=== PATIENT | female | born 1955 | race Two or more races ===

== ENCOUNTER 2024-12-11 11:18 | Inpatient (IN) | payer MEDICARE ==
[~2024-12-11] VITALS: Ht 160 cm; Wt 67.4 kg
--- NOTE | 2024-12-11 11:33 | ECG ---
[facility] Test Date: 2024-12-11 Test Time: 11:29:35 Pat Name: DAVID MORRISON Department: ER Room: Gender: F Construction Specialist: NAOMY : 1955 Requested By: VERÓNICA CHERY Order Number: [id number] Reading MD: Kee Bowers Measurements Intervals [place] Rate: 98 P: 65 PA: 139 QRS: -1 QRSD: 83 T: 39 QT: 311 QTc: 398 Interpretive Statements Sinus rhythm Low voltage, precordial leads Electronically Signed On 12-11-2024 17:23:28 PST by Kee Bowers Please click the below link to view image of tracing.
--- NOTE | 2024-12-11 12:00 | ED.PDOC ---
History of Present Illness HPI Comments Ekaterina Arnold is a 69-year-old female patient who presents to the ED with chief complaint of dyspnea in functional class III associated with lower back pain, generalized weakness, dizziness with frequent falls with no loss of consciousness (probably secondary to Meniere syndrome) which started on September 2024 per patient was triggered after shingle infection, she has seen PCP multiple occasions in completed three courses of amoxicillin with no improvement of her symptoms. In the past week she started complaining of productive cough with clear/tanned phlegm and stabbing chest pain which appears with the cough, prompting her visit to the ED. denies palpitation, syncope, nausea, vomiting, diarrhea, unintentional weight loss, recent travel, sick contacts, bleeding, dysuria and motor or sensory deficits Past medical history: Hypertension, dyslipidemia, diabetes, asthma, hemorrhoids status post hemorrhoidectomy, gastritis, menopause at age 50 with no abnormal uterine bleeding, Meniere syndrome status post craniotomy, anemia which has resolved after hemorrhoidectomy, anxiety Surgical history: Appendicectomy, craniotomy, hemorrhoidectomy Family history: Hypertension diabetes in brother and grandmother. Brother of PE at age 73 Social history: Lives in [place] alone (daughter lives close by and visits her daily). Denies current tobacco, alcohol and other drug abuse Allergies: Iodine Home medication: Aspirin, Mucinex, metformin a 1000 mg p.o. b.i.d., losartan 100 mg p.o. daily, Xanax, fish oil Chief Complaint: General Weakness Time Seen by MD: 11:30 Allergies: Coded Allergies: Iodine (Unverified Allergy, Unknown, 12/11/24) Mode of Arrival: Ambulatory Physical Exam General Appearance: No Apparent Distress, Normal HEENT: Normal ENT Inspection, TMs Normal, Other (Erythema and pharynx, dry mucous membranes.) Neck: Full Range of Motion, Non-Tender, Normal, Normal Inspection Respiratory: Chest Non-Tender, Crackles, No Accessory Muscle Use, No Respiratory Distress Cardiovascular: No Edema, No JVD, No Murmur, No Gallop, Normal Peripheral Pulses, Regular Rate/Rhythm Breast Exam: Deferred Gastrointestinal: No Organomegaly, Non Tender, No Pulsatile Mass, Normal Bowel Sounds, Soft Genitalia: Deferred Pelvic: Deferred Rectal: Deferred Extremities: No calf tenderness, Normal capillary refill, Normal inspection, Normal range of motion, Non-tender, No pedal edema Neurologic: Alert, brazer induction II-XII nml as Tested, No Motor Deficits, Normal Affect, Normal Mood, No Sensory Deficits Cerebellar Function: Normal Reflexes: Normal Skin: Dry, Normal Color, Warm Lymphatic: No Adenopathy Was a procedure done? Was a procedure done?: No Differential Dx Considerations may include: Pneumonia, LA, PE, pulmonary hypertension, anemia X-Ray, Labs, Meds, VS Vital Signs Date Time Temp Pulse Resp B/P (MAP) Pulse Ox O2 Delivery O2 Flow Rate FiO2 12/11/24 16:27 98.4 91 20 137/83 (101) 98 98.4 12/11/24 16:06 97 16 97 Room Air* 0 21 12/11/24 16:04 97.8 87 18 135/62 (86) 99 97.8 12/11/24 11:30 97.8 63 22 134/65 (88) 94 12/11/24 11:30 22 94 Room Air 0 12/11/24 11:29 98 Lab Test 12/11/24 17:00 12/11/24 15:08 12/11/24 12:03 Range/Units Influenza Type A Antigen Positive Negative Influenza Type B Antigen Negative Negative SARS-CoV-2 Antigen (Rapid) Negative NEGATIVE Urine Color Yellow Yellow Urine Clarity Clear Clear Urine pH 5.5 5.0-9.0 Urine Specific [place] 1.026 1.001-1.035 Urine Protein 1+ H Negative Urine Ketones Negative Negative Urine Blood Negative Negative /uL Urine Nitrite Negative Negative Urine Bilirubin Negative Negative Urine Urobilinogen Normal Negative mg/dL Urine Leukocyte Esterase Negative Negative /uL Urine RBC 2 0 - 4 /hpf Urine Microscopic WBC 1 0-5 /HPF Urine Squamous Epithelial Cells Few <5 /hpf Urine Bacteria None seen None Seen /hpf Urine Glucose Normal Normal mg/dL Urine Opiates Screen Pending Urine Fentanyl Screen Pending Urine Barbiturates Screen Pending Urine Phencyclidine Screen Pending Urine Amphetamines Screen Pending Urine Benzodiazepines Screen Pending Urine Cocaine Screen Pending Urine Cannabinoids Screen Pending White Blood Count 5.6 4.4-10.8 10^3/uL Red Blood Count 4.72 4.0-5.20 10^6/uL Hemoglobin 13.6 12.2-16.2 g/dL Hematocrit 41.3 36.0-46.0 % Mean Corpuscular Volume 87.6 80.0-100.0 fL Mean Corpuscular Hemoglobin 28.9 28.0-32.0 pg Mean Corpuscular Hemoglobin Concent 33.0 32.0-36.0 g/dL Red Cell Distribution Width 14.3 11.8-14.3 % Platelet Count 194 140-450 10^3/uL Mean Platelet Volume 7.8 6.9-10.8 fL Neutrophils (%) (Auto) 75.8 37.0-80.0 % Lymphocytes (%) (Auto) 14.6 10.0-50.0 % Monocytes (%) (Auto) 8.5 0.0-12.0 % Eosinophils (%) (Auto) 0.7 0.0-7.0 % Basophils (%) (Auto) 0.4 0.0-2.0 % Neutrophils # (Auto) 4.3 1.6-8.6 10 ^3/uL Lymphocytes # (Auto) 0.8 0.4-5.4 10 ^3/uL Monocytes # (Auto) 0.5 0-1.3 10 ^3/uL Eosinophils # (Auto) 0 0-0.8 10 ^3/uL Basophils # (Auto) 0 0-0.2 10 ^3/uL Nucleated Red Blood Cells 0.2 % Prothrombin Time 10.1 9.3-11.8 sec Prothrombin Time INR 0.95 0.9-1.15 Activated Partial Thromboplast Time 32.0 24.5-34.5 SEC D-Dimer, Quantitative 0.94 H 0.0-0.49 mg/L FEU Sodium Level 140 136-145 mmol/L Potassium Level 4.0 3.5-5.1 mmol/L Chloride Level 106 98-107 mmol/L Carbon Dioxide Level 26 20-31 mmol/L Anion Gap 8 5-15 Blood Urea Nitrogen 23 9-23 mg/dL Creatinine 1.24 H 0.550-1.02 mg/dL Glomerular Filtration Rate Calc 47 >90 mL/min BUN/Creatinine Ratio 18.5 10.0-20.0 Serum Glucose 127 H 74-106 mg/dL Lactic Acid Level 1.2 0.4-2.0 mmol/L Calcium Level 9.5 8.7-10.4 mg/dL Phosphorus Level 3.1 2.4-5.1 mg/dL Magnesium Level 1.9 1.6-2.6 mg/dL Total Bilirubin 0.3 0.2-1.0 mg/dL Aspartate Amino Transferase (AST) 35 13-40 U/L Alanine Aminotransferase (ALT) 14 7-40 U/L Alkaline Phosphatase 83 46-116 U/L B-Type Natriuretic Peptide 4.50 0-100 pg/mL Total Protein 7.6 5.7-8.2 g/dL Albumin 4.8 3.2-4.8 g/dL Thyroid Stimulating Hormone (TSH) 3.52 0.55-4.78 uIU/mL X-Ray, Labs, Meds, VS Comment Have ordered laboratory results, vital signs, two chest x-ray. D-dimer slightly positive (0.9). Completed V/Q scan which showed no PE and reduced ventilation left lung. Ordered urine analysis which is compatible with UTI. Influenza A positive. Time of 1ST Reevaluation: 18:06 Reevaluation 1ST: Unchanged Patient Education/Counseling: Diagnosis, Treatment, Prognosis Family Education/Counseling: Diagnosis, Treatment, Prognosis Departure 1 Departure Time of Disposition: 18:06 Impression: Primary Impression: Influenza A Additional Impression: UTI (urinary tract infection) Disposition: ADMITTED INPATIENT Condition: Serious Additional Instructions: Patient will need IV oseltamivir for influenza infection, IV antibiotics for UTI. V/Q scan negative for PE, but showed decreased ventilation and left lung (probably secondary to influenza). Due to age and symptoms, patient will benefit from admission and IV treatment Critical Care Note Critical Care Time?: No Stability Stability form required: No Heart Score Heart Score: Heart Score Response (Comments) Value History N/A 0 EKG N/A 0 Age N/A 0 Risk Factors N/A 0 Troponin N/A 0 Total 0 VERÓNICA CHERY RESIDENT Dec 11, 2024 12:00
--- NOTE | 2024-12-11 12:43 | DVH ---
EXAM: XY CHEST XRAY 1 VIEW Indication: SOB Technique: Single frontal view of the chest was obtained Comparison: None FINDINGS: Lines and Tubes: None Lungs: No focal consolidation. Pleura: No effusion. No pneumothorax. Cardiomediastinal contours: Unremarkable Bones: No acute osseous abnormality. IMPRESSION: No acute cardiopulmonary disease.
[2024-12-11 12:45] LABS: Basophils # (auto) 0 10 ^3/uL (0-0.2); Basophils % (auto) 0.4 % (0.0-2.0); Eosinophils # (auto) 0 10 ^3/uL (0-0.8); Eosinophils % (auto) 0.7 % (0.0-7.0); Hematocrit 41.3 % (36.0-46.0); Hemoglobin 13.6 g/dL (12.2-16.2); Lymphocytes # (auto) 0.8 10 ^3/uL (0.4-5.4); Lymphocytes % (auto) 14.6 % (10.0-50.0); Mean Corpuscular Hemoglobin 28.9 pg (28.0-32.0); Mean Corpuscular Volume 87.6 fL (80.0-100.0); Monocytes # (auto) 0.5 10 ^3/uL (0-1.3); Monocytes % (auto) 8.5 % (0.0-12.0); Neutrophils # (auto) 4.3 10 ^3/uL (1.6-8.6); Neutrophils % (auto) 75.8 % (37.0-80.0); Nucleated Red Blood Cells % 0.2 %; Platelet Count (auto) 194 10^3/uL (140-450); Red Blood Cells 4.72 10^6/uL (4.0-5.20); Red Cell Distribution Width 14.3 % (11.8-14.3); White Blood Cell 5.6 10^3/uL (4.4-10.8)
[2024-12-11 12:49] LABS: INR 0.95 (0.9-1.15); Prothrombin Time 10.1 sec (9.3-11.8)
[2024-12-11 12:52] LABS: Alanine Aminotransferase 14 U/L (7-40); Alkaline Phosphatase 83 U/L (46-116); Anion Gap 8 (5-15); Aspartate Aminotransferase 35 U/L (13-40); BUN/Creatinine Ratio 18.5 (10.0-20.0); Calcium 9.5 mg/dL (8.7-10.4); Carbon Dioxide 26 mmol/L (20-31); Chloride 106 mmol/L (98-107); Magnesium 1.9 mg/dL (1.6-2.6); Phosphorus 3.1 mg/dL (2.4-5.1); Sodium 140 mmol/L (136-145); Total Protein 7.6 g/dL (5.7-8.2)
[2024-12-11 12:53] LABS: Albumin 4.8 g/dL (3.2-4.8); Bilirubin, Total 0.3 mg/dL (0.2-1.0); Blood Urea Nitrogen 23 mg/dL (9-23); Glucose 127 mg/dL (74-106)
--- NOTE | 2024-12-11 15:46 | DVH ---
CLINICAL INFORMATION: 69 years old, Female; shortness of breath. Rule out pulmonary embolism. TECHNIQUE: 5.2 mCi of Xenon-133 gas was used for the ventilation portion of the exam. Posterior vent ilation imaging was obtained. 5.2 mCi of technetium 99m MAA was used for the perfusion portion of the exam. Imaging was obtained in multiple planes of projection. COMPARISON: Radiograph dated 12/11/2024. FINDINGS: There is normal perfusion. There is mildly diminished ventilation in the left lung compared to the right. There is normal washou t. IMPRESSION: 1. Normal perfusion. No evidence of pulmonary embolism. 2. Mildly diminished ventilation to the left lung compared to the right, of uncertain etiology or cli nical significance. Correlate with clinical findings.
[2024-12-11 16:06] VITALS: PULSE 97; RESP 16; O2SAT 97
[2024-12-11 17:20] LABS: Urine Bacteria None Seen /hpf (None Seen)
[2024-12-11 17:32] LABS: Urine Blood Negative /uL (Negative); Urine Clarity Clear (Clear); Urine Color Yellow (Yellow); Urine Protein, UAD 1+ (Negative); Urine Specific Gravity 1.026 (1.001-1.035); Urine Squamous Epithelial Cell FEW /hpf (<5); Urine Urobilinogen Normal (Negative); Urine WBC 1 /HPF (0-5); Urine pH 5.5 (5.0-9.0)
[2024-12-11 17:36] LABS: COVID19 ANTIGEN SOFIA FIA NEGATIVE (NEGATIVE)
[2024-12-11 17:38] LABS: Rapid Influenza B Negative (Negative)
[2024-12-11 17:39] LABS: Phencyclidine Screen, Urine Neg (NEGATIVE)
[2024-12-11 17:40] LABS: Rapid Influenza A Positive (Negative)
[2024-12-11] MEDS ORDERED: AZITHROMYCIN 500MG/ 250ML 250 ML IV ONE (18:15)
[2024-12-11 18:22] LABS: Amphetamine Screen, Urine Neg (NEGATIVE); Barbiturate Scree,Urine Neg (NEGATIVE); Benzodiazephine Screen, Urine Pos (NEGATIVE); Cannabinoid Screen, Urine Neg (NEGATIVE); Cocaine Screen, Urine Neg (NEGATIVE); Opiate Scree,Urine Neg (NEGATIVE)
[2024-12-11] MEDS: IPRATROPIUM BROM 0.5 MG/2.5ML INH SOL NEB ONE (19:55)
[2024-12-11] MEDS: BUDESONIDE (INHALATION) 0.5 MG/2 ML NEB NEB ONE (19:55)
[2024-12-11 20:00] VITALS: BP 114/62; PULSE 80; RESP 18; TEMP 99.8; O2SAT 96
[2024-12-11] MEDS: cefTRIAXone 1GM/50ML D5W 50 ML IV ONE (20:35)
[2024-12-11] MEDS: AZITHROMYCIN 500MG/ 250ML 250 ML IV ONE (21:10)
[2024-12-11] MEDS: BUDESONIDE (INHALATION) 0.5 MG/2 ML NEB NEB SCH (22:00)
[2024-12-11 22:16] VITALS: PULSE 93; RESP 18; O2SAT 96
[2024-12-11] MEDS: IPRATROPIUM BROM 0.5 MG/2.5ML INH SOL NEB SCH (22:16)
[2024-12-11 22:24] VITALS: PULSE 86; RESP 18; O2SAT 99
[2024-12-11] MEDS ORDERED: MORPHINE SULFATE INJ 2 MG/ml SYRG IV PRN (22:30)
[2024-12-11] MEDS ORDERED: NITROGLYCERIN 0.4 MG SL TAB SL PRN (22:30)
[2024-12-11] MEDS: OSELTAMIVIR 30 MG CAP PO SCH (22:34)
--- NOTE | 2024-12-11 22:36 | DVHHPRES ---
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 As per patient patient has been having productive cough, sputum production, for last 4- 5 days associated with generalized weakness. During emergency department visit, patient was evaluated for possible respiratory infection and found to have influenza a and possible UTI. Patient denied any other symptoms including chills, palpitation, motor weakness, sensory deficits, bleeding, dizziness, weight loss, any other symptoms. Past medical history: Hypertension, dyslipidemia, diabetes, asthma, hemorrhoids status post hemorrhoidectomy, gastritis, menopause at age 50 with no abnormal uterine bleeding, Meniere syndrome status post craniotomy, anemia which has resolved after hemorrhoidectomy, anxiety Surgical history: Appendicectomy, craniotomy, hemorrhoidectomy Family history: Hypertension diabetes in brother and grandmother. Brother of PE at age 73 Social history: Lives in [place] alone (daughter lives close by and visits her daily). Denies current tobacco, alcohol and other drug abuse Allergies: Iodine Home medication: Aspirin, Mucinex, metformin a 1000 mg p.o. b.i.d., losartan 100 mg p.o. daily, Xanax, fish oil Review of Systems Constitutional: No: Fever, Chills, Sweats, Weakness, Malaise, Other Eyes: No: Pain, Vision change, Conjunctivae inflammation, Eyelid inflammation, Other, Redness ENT: No: Ear pain, Ear discharge, Nose pain, Nose discharge, Nose congestion, Mouth pain, Mouth swelling, Throat pain, Throat swelling, Other Respiratory: Cough, Dry, Sputum; No: Shortness of breath, SOB with excertion, Hemoptysis, Pleuritic Pain, Wheezing, Other Cardiovascular: No: Chest Pain, Palpitations, Orthopnea, Paroxysmal Noc. Dyspnea, Edema, Lt Headedness, Other Gastrointestinal: No: Nausea, Vomiting, Abdominal Pain, Diarrhea, Constipation, Melena, Hematochezia, Other Genitourinary: No Dysuria, No Frequency, No Incontinence, No Hematuria, No Retention, No Other Musculoskeletal: No: other, neck pain, shoulder pain, arm pain, back pain, hand pain, leg pain, foot pain Skin: No: Rash, Lesions, Jaundice, Bruising, Other Neurological: No: Weakness, Numbness, Incoordination, Change in speech, Confusion, Seizures, Other Allergies: Coded Allergies: Iodine (Unverified Allergy, Unknown, 12/11/24) Medications Current Medications Medications Dose Ordered Sig/Kike Route Start Time Stop Time Status Last Admin Dose Admin Oseltamivir Phosphate 30 mg BID PO 12/11/24 22:00 12/16/24 21:59 12/11/24 22:34 30 MG Ceftriaxone Sodium 50 ml @ 100 mls/hr DAILY@09 IV 12/12/24 09:00 Azithromycin 250 ml @ 125 mls/hr DAILY IV 12/12/24 10:00 Ipratropium [place] 0.5 mg Q4HR NEB 12/11/24 22:00 12/11/24 22:16 0.5 MG Budesonide 0.5 mg BID NEB 12/11/24 22:00 Nitroglycerin 0.4 mg Q5MINP PRN SL 12/11/24 22:30 UNV Morphine Sulfate 2 mg Q30M PRN IV 12/11/24 22:30 UNV Pantoprazole Sodium 40 mg DAILY@0600 PO 12/12/24 06:00 UNV Enoxaparin Sodium 30 mg DAILY SC 12/12/24 10:00 UNV Exam Vital Signs Vital Signs Date Time Temp Pulse Resp B/P (MAP) Pulse Ox O2 Delivery O2 Flow Rate FiO2 12/11/24 22:24 86 18 99 12/11/24 22:16 Room Air* 0 21 12/11/24 20:00 99.8 114/62 99.8 General Appearance: Alert, Oriented X3 HEENT: PERRLA, EOMI Respiratory: Clear to auscultation, Normal air movement Cardiovascular: Regular rate, Normal S1, Normal S2 Abdominal: Normal bowel sounds, Soft, No tenderness Extremities: No clubbing Skin: No rashes, No breakdown Neuro: Normal gait, Normal speech, Strength at 5/5 X4 ext Psych/Mental Status: Mental status NL, Mood NL Labs/Xrays Labs Test 12/11/24 17:00 12/11/24 15:08 12/11/24 12:03 Range/Units Influenza Type A Antigen Positive Negative Influenza Type B Antigen Negative Negative SARS-CoV-2 Antigen (Rapid) Negative NEGATIVE Urine Color Yellow Yellow Urine Clarity Clear Clear Urine pH 5.5 5.0-9.0 Urine Specific [place] 1.026 1.001-1.035 Urine Protein 1+ H Negative Urine Ketones Negative Negative Urine Blood Negative Negative /uL Urine Nitrite Negative Negative Urine Bilirubin Negative Negative Urine Urobilinogen Normal Negative mg/dL Urine Leukocyte Esterase Negative Negative /uL Urine RBC 2 0 - 4 /hpf Urine Microscopic WBC 1 0-5 /HPF Urine Squamous Epithelial Cells Few <5 /hpf Urine Bacteria None seen None Seen /hpf Urine Glucose Normal Normal mg/dL Urine Opiates Screen Neg NEGATIVE Urine Fentanyl Screen Neg NEGATIVE Urine Barbiturates Screen Neg NEGATIVE Urine Phencyclidine Screen Neg NEGATIVE Urine Amphetamines Screen Neg NEGATIVE Urine Benzodiazepines Screen Pos NEGATIVE Urine Cocaine Screen Neg NEGATIVE Urine Cannabinoids Screen Neg NEGATIVE White Blood Count 5.6 4.4-10.8 10^3/uL Red Blood Count 4.72 4.0-5.20 10^6/uL Hemoglobin 13.6 12.2-16.2 g/dL Hematocrit 41.3 36.0-46.0 % Mean Corpuscular Volume 87.6 80.0-100.0 fL Mean Corpuscular Hemoglobin 28.9 28.0-32.0 pg Mean Corpuscular Hemoglobin Concent 33.0 32.0-36.0 g/dL Red Cell Distribution Width 14.3 11.8-14.3 % Platelet Count 194 140-450 10^3/uL Mean Platelet Volume 7.8 6.9-10.8 fL Neutrophils (%) (Auto) 75.8 37.0-80.0 % Lymphocytes (%) (Auto) 14.6 10.0-50.0 % Monocytes (%) (Auto) 8.5 0.0-12.0 % Eosinophils (%) (Auto) 0.7 0.0-7.0 % Basophils (%) (Auto) 0.4 0.0-2.0 % Neutrophils # (Auto) 4.3 1.6-8.6 10 ^3/uL Lymphocytes # (Auto) 0.8 0.4-5.4 10 ^3/uL Monocytes # (Auto) 0.5 0-1.3 10 ^3/uL Eosinophils # (Auto) 0 0-0.8 10 ^3/uL Basophils # (Auto) 0 0-0.2 10 ^3/uL Nucleated Red Blood Cells 0.2 % Prothrombin Time 10.1 9.3-11.8 sec Prothrombin Time INR 0.95 0.9-1.15 Activated Partial Thromboplast Time 32.0 24.5-34.5 SEC D-Dimer, Quantitative 0.94 H 0.0-0.49 mg/L FEU Sodium Level 140 136-145 mmol/L Potassium Level 4.0 3.5-5.1 mmol/L Chloride Level 106 98-107 mmol/L Carbon Dioxide Level 26 20-31 mmol/L Anion Gap 8 5-15 Blood Urea Nitrogen 23 9-23 mg/dL Creatinine 1.24 H 0.550-1.02 mg/dL Glomerular Filtration Rate Calc 47 >90 mL/min BUN/Creatinine Ratio 18.5 10.0-20.0 Serum Glucose 127 H 74-106 mg/dL Lactic Acid Level 1.2 0.4-2.0 mmol/L Calcium Level 9.5 8.7-10.4 mg/dL Phosphorus Level 3.1 2.4-5.1 mg/dL Magnesium Level 1.9 1.6-2.6 mg/dL Total Bilirubin 0.3 0.2-1.0 mg/dL Aspartate Amino Transferase (AST) 35 13-40 U/L Alanine Aminotransferase (ALT) 14 7-40 U/L Alkaline Phosphatase 83 46-116 U/L B-Type Natriuretic Peptide 4.50 0-100 pg/mL Total Protein 7.6 5.7-8.2 g/dL Albumin 4.8 3.2-4.8 g/dL Thyroid Stimulating Hormone (TSH) 3.52 0.55-4.78 uIU/mL Assessment/Plan Assessment/Plan Acute on chronic respiratory failure due to influenza Asthma, no exacerbation Urinary tract infection Hypertension Dyslipidemia Diabetes mellitus type 2 History of Meniere's disease Plan/recommendation -IV antibiotic with ceftriaxone and azithromycin -oseltamivir 30 mg p.o. b.i.d. for influenza -scheduled breathing treatment with budesonide one 5 mg b.i.d., ipratropium bromide 0.5 mg q.4. -incentive spirometry -PUD prophylaxis with Protonix 40 mg p.o. daily -DVT prophylaxis with enoxaparin 30 mg subQ Goals of care discussed greater than 23 minutes, full code status. Plan discussed with Dr. Perrin Plan discussed with: Patient, Other (RN) My Orders Orders - ISHMAEL WASHINGTON Procedure Category Date Status Time Admit ADMIT 12/11/24 Transmitted 22:30 Nitroglycerin PHA 12/11/24 Logged Sublingual (Ntrostat 22:30 Morphine Sulfate PHA 12/11/24 Logged Injection 22:30 Pantoprazole Tablet PHA 12/11/24 Logged (Protonix Tablet) 22:45 Pantoprazole Tablet PHA 12/12/24 Logged (Protonix Tablet) 06:00 Enoxaparin Sodium PHA 12/11/24 Logged (Lovenox) 22:45 Enoxaparin Sodium PHA 12/12/24 Logged (Lovenox) 10:00 Date of Service: Dec 11, 2024 Billing Provider: RICHARD PERRIN MD Common Visit Codes: [id number] INP/OBS CARE (HIGH) Secondary Visit Codes: [id number] CARE PLAN 30 MINUTES ISHMAEL WASHINGTON RESIDENT Dec 11, 2024 22:36 RICHARD PERRIN MD Dec 13, 2024 00:31
[2024-12-11] MEDS: PANTOPRAZOLE 40 MG TAB PO ONE (23:20)
[2024-12-11] MEDS: ENOXAPARIN SOD 30 MG/0.3 ML SYRINGE SC ONE (23:20)
[2024-12-12] VITALS (10 sets, daily range): BP systolic 111; BP diastolic 35; PULSE 60–100; RESP 16–20; TEMP 98.3; O2SAT 60–100
[2024-12-12] MEDS: PANTOPRAZOLE 40 MG TAB PO SCH (06:18)
[2024-12-12] MEDS: cefTRIAXone 1GM/50ML D5W 50 ML IV SCH (08:36)
[2024-12-12] MEDS: AZITHROMYCIN 500MG/ 250ML 250 ML IV SCH (10:28)
[2024-12-12] MEDS: DOXYCYCLINE 100 MG TAB/CAP PO ONE (13:00)
--- NOTE | 2024-12-12 13:44 | DVHPN2 ---
Subjective Feels better Reviewed: Care Plan, H&P, Labs, Medications, Previous Orders, Radiology Changes from previous H/P or p: No Changes Respiratory: Cough, Dry; No Shortness of breath, No SOB with excertion, No Wheezing, No Hemoptysis, No Pleuritic Pain; Sputum; No Other Objective Vitals Vital Signs Date Time Temp Pulse Resp B/P (MAP) Pulse Ox O2 Delivery O2 Flow Rate FiO2 12/12/24 12:00 96 12 117/65 (82) 98 12/12/24 09:52 Room Air 0.0 12/12/24 09:52 21 12/12/24 08:30 98.3 98.3 Intake/Output Intake and Output 12/12/24 07:00 Intake Total 300 ml Balance 300 ml Intake IV Total 300 ml General Appearance: Alert, Oriented X3, Cooperative, No acute distress HEENT: Atraumatic Lungs: Clear to auscultation Cardiovascular: Regular rate Abdomen: Normal bowel sounds, Soft Medications Current Medications Medications Dose Ordered Sig/Kike Route Start Time Stop Time Status Last Admin Dose Admin Oseltamivir Phosphate 30 mg BID PO 12/11/24 22:00 12/16/24 21:59 12/12/24 10:32 30 MG Ipratropium [place] 0.5 mg Q4HR NEB 12/11/24 22:00 12/12/24 13:39 0.5 MG Budesonide 0.5 mg BID NEB 12/11/24 22:00 12/12/24 06:19 0.5 MG Nitroglycerin 0.4 mg Q5MINP PRN SL 12/11/24 22:30 Morphine Sulfate 2 mg Q30M PRN IV 12/11/24 22:30 Pantoprazole Sodium 40 mg DAILY@0600 PO 12/12/24 06:00 12/12/24 06:18 40 MG Enoxaparin Sodium 30 mg Q24H SC 12/12/24 21:00 Doxycycline Monohydrate 100 mg Q12HR PO 12/12/24 22:00 Losartan Potassium 25 mg DAILY PO 12/13/24 10:00 UNV Diagnostic Test (Pha) 1 strip ACHS 12/12/24 17:00 UNV Insulin Human Regular ACHS SC 12/12/24 17:00 UNV Dextrose 50 ml UD PRN IV 12/12/24 13:45 UNV Laboratory Results Laboratory Tests 12/11/24 12:03 Urinalysis Test 12/11/24 15:08 Urine Color Yellow (Yellow) Urine Clarity Clear (Clear) Urine pH 5.5 (5.0-9.0) Urine Specific [place] 1.026 (1.001-1.035) Urine Protein 1+ (Negative) H Urine Ketones Negative (Negative) Urine Blood Negative /uL (Negative) Urine Nitrite Negative (Negative) Urine Bilirubin Negative (Negative) Urine Urobilinogen Normal mg/dL (Negative) Urine Leukocyte Esterase Negative /uL (Negative) Urine RBC 2 /hpf (0 - 4) Urine Microscopic WBC 1 /HPF (0-5) Urine Squamous Epithelial Cells Few /hpf (<5) Urine Bacteria None seen /hpf (None Seen) Urine Glucose Normal mg/dL (Normal) Assessment/Plan Assessment/Plan Respiratory failure with hypoxemia due to influenza a infection Asthma Hypertension Diabetes Dyslipidemia History of gastritis History of Meniere's disease Chronic kidney disease with possibly acute kidney injury Elevated D-dimer Plan: Discontinue Rocephin and Zithromax. We will put on doxycycline. We will obtain V/Q scan due to the elevated D-dimer. Further plan per orders Plan discussed with: Patient My Orders Orders - JEREMÍAS CURRY MD Procedure Category Date Status Time Doxycycline Tablet PHA 12/12/24 In Process (Vibramycin Tablet) 22:00 Losartan Tablet PHA 12/13/24 Logged (Cozaar Tablet) 10:00 Glucose Blood PHA 12/12/24 Logged (Accu-Chek Comfort 17:00 Insulin R (Human) PHA 12/12/24 Logged (Insulin R) 17:00 Dextrose 50% Syringe PHA 12/12/24 Logged 13:45 Date of Service: Dec 12, 2024 Billing Provider: JEREMÍAS CURRY MD Common Visit Codes: [id number] INP/OBS CARE(HIGH) JEREMÍAS CURRY MD Dec 12, 2024 13:44
[2024-12-12] MEDS ORDERED: DEXTROSE (50%) 50ML SYRG IV PRN (13:45)
--- NOTE | 2024-12-12 15:13 | DVH ---
CLINICAL HISTORY: Bilateral lower extremity DVT. No other clinical information provided. COMPARISON: None TECHNIQUE: Bilateral lower extremity venous duplex exam was performed. Grayscale, color flow, and spe ctral waveform analysis was performed. The deep veins of the lower extremity were evaluated for compr ession, phasic flow, and augmentation. Color flow and spectral waveform analysis were performed. FINDINGS: This examination demonstrates normal compression, augmentation, and phasic flow of both low er extremities. No evidence for echogenic thrombus within the common femoral, femoral, and popliteal veins. In addition, the calf veins demonstrated normal compression and color flow. IMPRESSION: There is no evidence for DVT in either lower extremity.
[2024-12-12] MEDS ORDERED: ACCU-CHEK COMFORT CURVE STRIP VI SCH (17:00)
[2024-12-12] MEDS ORDERED: InsuLIN REG 1unit/0.01ml Soln (100units/ml) SC SCH (17:00)
[2024-12-12] MEDS ORDERED: ENOXAPARIN SOD 30 MG/0.3 ML SYRINGE SC SCH (21:00)
[2024-12-12] MEDS ORDERED: DOXYCYCLINE 100 MG TAB/CAP PO SCH (22:00)
[2024-12-13] MEDS ORDERED: LOSARTAN POTASSIUM 25 MG TAB PO SCH (10:00)
== END 2024-12-12 14:30 | disposition left against medical advice (07) | DRG 193 ==
LOC: ER 11:18 → OVERFLOW 22:30
PROVIDERS: ADMIT Student in an Organized Health Care Education/Training Program; ATTEND Nurse Practitioner Family
DX: J10.1 Influenza due to other identified influenza virus with other respiratory manifestations (principal); J96.21 Acute and chronic respiratory failure with hypoxia; N17.9 Acute kidney failure, unspecified; N39.0 Urinary tract infection, site not specified; J45.909 Unspecified asthma, uncomplicated; E11.22 Type 2 diabetes mellitus with diabetic chronic kidney disease; Z20.822 Contact with and (suspected) exposure to COVID-19; H81.09 Meniere's disease, unspecified ear; E78.5 Hyperlipidemia, unspecified; F41.9 Anxiety disorder, unspecified; I12.9 Hypertensive chronic kidney disease with stage 1 through stage 4 chronic kidney disease, or unspecified chronic kidney disease; Z53.29 Procedure and treatment not carried out because of patient's decision for other reasons; N18.9 Chronic kidney disease, unspecified; Z82.49 Family history of ischemic heart disease and other diseases of the circulatory system; Z83.3 Family history of diabetes mellitus; Z63.4 Disappearance and death of family member; Z91.041 Radiographic dye allergy status
CPT/HCPCS: 36415; 71045; 78582; 80053; 80307; 81001; 83605; 83735; 83880; 84100; 84443; 85025; 85379; 85610; 85730; 87426; 87804; 93005; 93970; 94640; G0378; G9035